=== PATIENT | female | born 1970 | race Caucasian/White ===

== ENCOUNTER → 2016-12-24 17:00 | Outpatient (CLI) | payer BC ==
[2012-01-17 08:38] VITALS: BMI 21.1
== END | disposition home or self-care (01) ==
LOC: D.MAMMO 09:00
DX: Z85.3 Personal history of malignant neoplasm of breast (principal); Z12.31 Encounter for screening mammogram for malignant neoplasm of breast

== ENCOUNTER → 2017-07-01 17:02 | Outpatient (CLI) | payer BC ==
[2012-01-17 08:38] VITALS: BMI 21.1
== END | disposition home or self-care (01) ==
LOC: D.MAMMO 15:00
DX: R92.8 Other abnormal and inconclusive findings on diagnostic imaging of breast (principal)

== ENCOUNTER → 2017-12-29 17:07 | Outpatient (CLI) | payer OTHER ==
[2012-01-17 08:38] VITALS: BMI 21.1
== END | disposition home or self-care (01) ==
LOC: D.MAMMO 11:00
DX: Z85.3 Personal history of malignant neoplasm of breast (principal)

== ENCOUNTER → 2018-12-30 17:00 | Outpatient (CLI) | payer OTHER ==
[2012-01-17 08:38] VITALS: BMI 21.1
== END | disposition home or self-care (01) ==
LOC: D.MAMMO 09:30
PROVIDERS: ATTEND Surgery
DX: Z85.3 Personal history of malignant neoplasm of breast (principal)

== ENCOUNTER → 2020-01-06 21:00 | Outpatient (CLI) | payer OTHER ==
[2012-01-17 08:38] VITALS: BMI 21.1
== END | disposition home or self-care (01) ==
LOC: D.MAMMO 10:00
PROVIDERS: ATTEND Internal Medicine Hematology & Oncology
DX: C50.811 Malignant neoplasm of overlapping sites of right female breast (principal)